=== PATIENT | female | born 1925 | race Caucasian/White ===

== ENCOUNTER → 2016-06-07 | Outpatient (CLI) | payer OTHER ==
--- NOTE | 2016-06-07 16:00 | DIAGNOSTIC IMAGING REPORT ---
RIGHT KNEE 3 VIEWS CLINICAL HISTORY: Bilateral knee pain. COMPARISON: None FINDINGS: No acute fracture is identified. There is chondrocalcinosis within the menisci and the suprapatellar joint space. There may be a small joint effusion. Note is made of marked lateral compartment joint space narrowing with osteophytosis and sclerosis with remodeling of the lateral femoral condyle and lateral tibial plateau. There is mild joint space narrowing within the patellofemoral compartment. IMPRESSION: 1. 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 2. Chondrocalcinosis within the menisci and suprapatellar joint space. 3. No fracture. Electronically signed by: Victor Manuel Vasquez M.D. 06/07/2016 3:58 PM
--- NOTE | 2016-06-07 16:05 | DIAGNOSTIC IMAGING REPORT ---
LEFT KNEE 3 VIEWS HISTORY: Left knee pain. COMPARISON: None. FINDINGS: There is no fracture or dislocation. Chondrocalcinosis. Small knee effusion. The bones are osteopenic. Mild tricompartmental osteoarthritis with large marginal osteophytes. IMPRESSION: 1. No fracture or dislocation within the left knee. 2. Mild tricompartmental osteoarthritis with associated chondrocalcinosis. 3. Small knee effusion. Electronically signed by: Murphy Mercedes M.D. 06/07/2016 4:03 PM
== END | disposition home or self-care (01) ==
LOC: C.RAD1850 15:40
PROVIDERS: ATTEND Internal Medicine
DX: G62.9 Polyneuropathy, unspecified (principal); M17.9 Osteoarthritis of knee, unspecified; M25.462 Effusion, left knee

== ENCOUNTER → 2017-04-03 | Outpatient (CLI) | payer OTHER ==
[2017-04-03 17:30] LABS: BASO % 0.5 %; BASO ABS # 0.04 K/uL (0-0.2); COMPLETE YES; EOS % 0.9 %; HEMATOCRIT 37.4 % (37-47); IG% 0.4 %; LYMPH % 20.9 %; LYMPH ABS # 1.78 K/uL (1.2-3.4); MEAN CELL VOLUME 96.6 fL (80-100); MEAN CORPUSCULAR HGB CONC 32.1 g/dl (32-36); MEAN PLATELET VOLUME 10.3 fL (7.4-10.4); NEUT % 69.3 %; PLATELET COUNT 279 K/uL (130-400); RED BLOOD COUNT 3.87 M/uL (4.2-5.4); WHITE BLOOD COUNT 8.53 K/uL (4.8-10.8)
[2017-04-03 17:42] LABS: ALT/SGPT 15 U/L (12-78); BLOOD UREA NITROGEN 18 mg/dl (7-18); CALCIUM 9.9 mg/dl (8.5-10.1); CARBON DIOXIDE 26 mmol/L (21-32); CHLORIDE 108 mmol/L (98-107); CREATININE 0.92 mg/dl (0.60-1.20); GLUCOSE 87 mg/dl (70-99); POTASSIUM 3.8 mmol/L (3.5-5.1); SODIUM 142 mmol/L (136-145)
[2017-04-03 17:54] LABS: ALB/GLOB RATIO 1.2 (0.9-2); ALKALINE PHOSPHATASE 68 U/L (45-117); AST/SGOT 16 U/L (15-37); THYROID STIMULATING HORMONE 0.135 uIu/ml (0.300-4.500)
--- NOTE | 2017-04-12 07:50 | CODING QUERY MEDICAL NECESSITY ---
SUPPORTING DIAGNOSIS NEEDED A supporting diagnosis is required for the test/procedure performed on this patient in order for us to be reimbursed by the patient's insurance. Please provide a supporting diagnosis for the following test/procedure listed below next to the test name along with your signature. *If there is no additional diagnosis for this patient that would support the following test/procedure please document that below next to the test/procedure. Test(s)/Procedure(s) that require a supporting diagnosis: * VITAMIN D, 25-HYDROXY DIAGNOSIS: * VITAMIN B12 DIAGNOSIS: Provider Signature: Date: Thank you Keyla Stoner [employer] Once completed, please kindly fax back to [phone] For questions please call [phone]
== END | disposition home or self-care (01) ==
LOC: C.LABPBG 13:48
PROVIDERS: ATTEND Internal Medicine
DX: E03.9 Hypothyroidism, unspecified (principal); M19.90 Unspecified osteoarthritis, unspecified site; R03.0 Elevated blood-pressure reading, without diagnosis of hypertension; I34.0 Nonrheumatic mitral (valve) insufficiency; E78.5 Hyperlipidemia, unspecified; G62.9 Polyneuropathy, unspecified